=== PATIENT | female | born 1965 | race Caucasian/White ===

== ENCOUNTER → 2021-01-09 11:44 | Outpatient (BNVA) | payer BC, SELFPAY | PROVIDERS: Family Provider Counselor Professional; Visit Provider Registered Nurse | DX: F33.2 Major depressive disorder, recurrent severe without psychotic features (principal) | CPT/HCPCS: 36415; 80061; 82306; 83036; 84443 ==

== ENCOUNTER → 2023-01-18 09:57 | Outpatient (BNVA) | payer BC, SELFPAY | PROVIDERS: Family Provider Counselor Professional; PCP Family Medicine; Visit Provider Registered Nurse | DX: Z79.899 Other long term (current) drug therapy (principal) | CPT/HCPCS: 80053; 80061; 83036; 85025 ==